=== PATIENT | female | born 1995 | race Caucasian/White ===

== ENCOUNTER → 2017-01-14 | Outpatient (CLI) | payer OTHER ==
--- NOTE | 2017-01-14 13:57 | MAMMOGRAPHY REPORT ---
ULTRASOUND OF RIGHT BREAST: 01/14/2017 CLINICAL HISTORY: The patient reports diffuse mild right breast pain for approximately 4 weeks, pred ominantly in the right lower breast. She denies any palpable lump. She reports a family history of breast cancer in her mother who was diagnosed at age 44. COMPARISON: No prior exams were available for comparison. TECHNIQUE: Real-time targeted ultrasound of the right breast was performed. FINDINGS: Real-time, high resolution targeted ultrasound was performed of the right breast including all [address] and subareolar regions. No suspicious masses or other suspicious abnormalities were seen wit hin the right upper inner quadrant, lower inner quadrant, subareolar region, or lower outer quadrant . In the right 9 to 9:30 breast, 2 cm from the nipple, there is a round circumscribed hypoechoic ma ss which measures 3 x 2 x 3 mm. This may represent a complicated cyst versus a benign-appearing renata id mass such as a fibroadenoma, and is probably benign. Recommend short interval follow-up ultrasou nd in 6 months to confirm stability, given that it is newly visualized. The options of biopsy were also discussed with the patient, and she would like to weigh her options before making a decision. IMPRESSION: ACR-BI-RADS CATEGORY 3: PROBABLY BENIGN - FOLLOW-UP RECOMMENDED 1. No sonographic etiology for diffuse right breast pain evident. Recommend clinical follow-up. 2. Incidentally noted hypoechoic 3 mm circumscribed mass in the right 9 to 9:30 breast. The mass i s probably benign and may represent a complicated cyst versus a fibroadenoma. Recommend short inter demetria follow-up ultrasound in 6 months to confirm stability. The options of biopsy were also discusse d with the patient given the family history of breast cancer, and she would like to weigh her option s before making a decision. The patient was verbally notified of the results. Rosy King M.D. /:01/14/2017 08:57:41 Refrigerating Oiler: Rosy King MD, [facility] letter sent: Follow Up Recommended 3 BI-RADS Code: ACR-BI-RADS Category 3: Probably Benign
== END | disposition home or self-care (01) ==
LOC: C.MAMM 08:18
PROVIDERS: ATTEND Internal Medicine
DX: N64.4 Mastodynia (principal); N63 Unspecified lump in breast